=== PATIENT | female | born 1950 | race Caucasian/White ===

== ENCOUNTER 2016-12-09 09:06 | Inpatient (IN) | payer MEDICARE, MEDICAID ==
[~2016-12-09] VITALS: Ht 154.9 cm; Wt 82.9 kg
[~2016-12-09 09:06] MED LIST: ANALGESIC BALM30 GM TP; CALTRATE-600 W600 MG PO; CEFTIN DPS500 MG PO; CETAPHIL CLEAN240 ML TP; CLARITIN DPS10 MG PO; DUONEB DPS3 ML IH; FLUOCINOLONE 0.025% TP; FLUOCINOLONE ACETONIDE 0.01% TP; HYDROCODONE 5MG/5 MG PO; KEFLEX-DPS500 MG PO; KEPPRA DPS500 MG/51 PO; KEPPRA XR500 MG PO; KLOR-CON M2020 ME1 PO; LAMISIL250 MG PO; LEVAQUIN DPS500 MG PO; LOPRESSOR DPS50 MG PO; MAALOX DPS30 ML PO; MAG-OX400 MG PO; MILK OF MAGNESI10 ML PO; MIRALAX17 GM PO; MOI-STIR120 ML PO; MUCINEX600 MG PO; MYCELEX TROCHE10 MG PO; MYCOSTATIN PWD15 GM TP; NITROSTAT0.4 MG SL; PEPCID DPS20 MG PO; PEPCID40 MG PO; PLAVIX75 MG PO; ROBITUSSIN DM S PO; SENOKOT S1 TAB PO; SINGULAIR10 MG PO; SURFAK240 MG PO; SYNTHROID DP0.025 MG PO; TYLENOL DPS325 MG PO; ULTRAM DPS50 MG PO; VIBRAMYCIN-DPS100 M2 PO; XARELTO10 MG PO; XARELTO20 MG PO; [UNRECOGNIZED DRUG - OTHER] PO; [UNRECOGNIZED DRUG - REMARK] PO
--- NOTE | 2016-12-11 09:07 | ER ---
ADMIT: 12/09/2016 RM/LOC: 312 [facility] MR#: [id number] [address] [address] FRANCESLYNDON Lance [place] [address] Emergency Room Report SEX: F AGE: 66 : 1950 DATE: 12/09/2016 ADDENDUM: CHIEF COMPLAINT: Decreased LOC. HISTORY OF PRESENT ILLNESS: This is a 66-year-old, alert, lives at [facility]. According to , it sounds like they were trying to get her to breakfast and she was just slumped over, seemed like she had no energy where she is usually able to set up in the wheelchair. She was not able to do that this morning. COURSE IN THE ER: Sepsis protocol was ordered along with influenza, CT of the head. She did receive a DuoNeb en route on the way. She was still very tight, so ordered a 2nd DuoNeb. She was initially came in of 4 liters of oxygen to keep her above 90%. We have titrated her down to 2 L, then she is at 92-%94% now. Chest x-ray did not show pneumonia but CTA of the chest did. She has bilateral pneumonia. Zosyn has been started down here. LABORATORY DATA: CBC showed WBC of 3.5, hemoglobin at 12.7, platelets 101. Lactic acid is 2.4. Procalcitonin is 0.19. INR is 1.25. CMP is normal except for chloride of 114, bicarb 21, glucose 103, calcium 8.0. Her total protein and albumin are low at 5.8 and 3.1. CK is low at 19. Her MB and troponin are normal. EKG showed sinus tachycardia at a rate of 101; over-read by Dr. Devine. No ST elevation or depression. Influenza test is negative. ABGs were done this was on 2 L. Her pO2 was 61, her pCO2 was 24.5, her pH was 7.382. She has A positive blood. Urine was normal except for 1+ ketones. She did receive a liter of fluids, now is at rate of 100 an hour. Again, Zosyn has been started down here in the emergency room. Dr. Haji was called at 1330 hours, and we will admit the patient. CLINICAL IMPRESSION: 1. Bilateral pneumonia. 2. Hypoxia. 3. History of cerebrovascular accident. DISPOSITION: She is stable at admit. JENNIFER Laurent / Tariq Devine MD / modl JOB #: [id number] CC: Bryce Haji MD, Attending Physician Bryce Haji MD, Family Physician
--- NOTE | 2016-12-11 13:52 | CO ---
ADMIT: 12/09/2016 RM/LOC: 312 [facility] MR#: [id number] [address] [address] LIBIA DANIELS [place], [place] [id number] Consultation SEX: F AGE: 66 : 1950 DATE OF CONSULTATION: 12/10/2016 ATTENDING PHYSICIAN: Bryce Haji CONSULTING PHYSICIAN: Tatyana Licea APRN TIME IN: 1300 hours. TIME OUT: 1355 hours. REASON FOR CONSULTATION: Supportive Care consultation was requested by Dr. Oconnor for discussion of goals for care. HISTORY OF PRESENT ILLNESS: Libia is a 66-year-old female, who resides at [facility] in [place]. She was admitted to the hospital on December 09 with fatigue, shortness of breath, and cough. She was found to have pneumonia and sepsis. She also had issues with atrial fibrillation. She was requiring BiPAP earlier, however, she is now tolerating nasal cannula. 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 She is fairly debilitated at baseline. Due to her complexities, Supportive Care consultation was requested to discuss goals for care. In terms of advanced directives, the patient does have a durable power-of- trademark attorney for healthcare. The patient's , Ashley Daniels whose phone #[phone] and #[phone], is the patient's durable [id number] for healthcare. The patient is a full code. She does have a living will. Symptomatically, the patient appears comfortable. She denies any complaints at this time. 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 ALLERGIES: THE PATIENT IS ALLERGIC TO ASPIRIN. CURRENT MEDICATIONS: Please see the patient's MAR for specific routes and dosages. Her current medications are as follows: 1. Hydrocodone. 2. Solu-Cortef. 3. NovoLog. 4. Half normal saline with potassium chloride. 5. Amiodarone. 6. Feroz-Synephrine. 7. Potassium chloride. ADMIT: 12/09/2016 RM/LOC: 312 [facility] MR#: [id number] [address] [address] [place] [address] Consultation SEX: F AGE: 66 : 1950 8. Keppra. 9. Xarelto. 10.Ultram. 11.Topamax. 12.Protonix. 13.Mucomyst. 14.Proventil. 15.Duragesic patch. 16.Singulair. 17.Magnesium oxide. 18.Synthroid. 19.Glutose. 20.Glucagon. 21.Analgesic balm. 22.Mycostatin powder. 23.MiraLax. 24.Nitro-Bid. 25.Levophed. 26.Cardizem. 27.Zosyn. 28.Levaquin. 29.Maalox. 30.Tylenol. 31.Surfak. 32.Nitrostat. SOCIAL HISTORY: The patient is . She lives at [facility]. She does not smoke or use alcohol. FAMILY HISTORY: Significant for prostate cancer. FUNCTION REVIEW: Prior to her hospital stay, she was at [facility]. She was requiring assistance with ADLs. She is in a wheelchair. Palliative performance scale prior to admission was around 40%. Currently, she is total care. Her intake is minimal. Her current palliative performance score is 20%. REVIEW OF SYSTEMS: A 10-point review of systems was attempted. However, due the patient's mentation, this is unable to be obtained. PHYSICAL EXAMINATION: GENERAL: The patient is examined in the bed. She is in no acute distress. VITAL SIGNS: Temperature 99.6, pulse 110, respirations 28, blood pressure 113/71, and oxygen 94% on O2 via nasal cannula. HEENT: Head is normocephalic. Pupils are equal, round, and reactive with a diameter of 3 mm bilaterally. Oral mucosa pink and moist with fair dentition. NECK: Supple. RESPIRATORY: Respirations are equal and nonlabored at rest. LUNGS: Diminished in the bases. ADMIT: 12/09/2016 RM/LOC: 312 [facility] MR#: [id number] [address] [place], [place] [id number] LIBIA DANIELS VÍ[place] [address] Consultation SEX: F AGE: 66 : 1950 CARDIOVASCULAR: Rate rhythm regular without murmurs, rubs, or gallops. 2+ bilateral lower extremity edema noted. GASTROINTESTINAL: Soft, nontender. Bowel sounds are positive. MUSCULOSKELETAL: Generalized weakness. She does have the left hemiparesis. INTEGUMENTARY: Skin turgor is fair. NEUROLOGIC: Fatigued. She will not answer orientation questions for me. PSYCHIATRIC: Calm and cooperative. No agitation noted. DIAGNOSTIC DATA: Sodium 138, potassium 3.6, BUN 15, creatinine 0.6, total protein 4.3, and albumin 2.1. WBCs 7.2, hemoglobin 11.1, hematocrit 34.6, and platelets 139. IMPRESSION: 1. Debility. 2. Fatigue. 3. Malaise. 4. Severe protein-calorie malnutrition. 5. Pneumonia. 6. Septic shock. 7. Atrial fibrillation. 8. Aortic arch aneurysm status post repair. 9. Aortic valve replacement. 10.Prior cerebrovascular accident with left hemiparesis. 11.Palliative care. 12.Patient is a full code. PLAN OF TREATMENT: 1. I met with the patient and her at the bedside. The patient is too fatigued to participate in medical decision making. We reviewed the patient's overall status and goals for the time ahead with the patient's . He is aware that she is very sick but is hopeful for improvement. His goal is to try to get her out of the hospital and get her back to the senior care to continue ongoing aggressive care at this point. He does agree to ongoing discussions pending her status. 2. I did review code status including the burden versus benefit of full code ADMIT: 12/09/2016 RM/LOC: 312 [facility] MR#: [id number] [address] [place] [id number] [place] [address] Consultation SEX: F AGE: 66 : 1950 status versus a do not resuscitate/do not intubate status with the patient's and at this time, he directs the patient to be a full code. He does agree to ongoing discussions regarding this pending the patient's status as well. At this point, I am hopeful that the patient can improve and hopefully participate at some point in our discussions. Overall her debility is significant and we will see how things go in the time ahead. We would like to thank Dr. Oconnor for the invitation participate in this patient's care. Total consultation time was 35 minutes from 1300 hours to 1335 with 20 minutes from 1305 hours to 1325 hours spent [id number] with the patient discussing goals for care and providing counseling and support. We will continue to follow along. Tatyana Licea APRN/ erika JOB #: [id number] CC: Bryce Haji, Attending Physician Bryce Haji, Family Physician
--- NOTE | 2016-12-12 09:59 | HP ---
ADMIT: 12/09/2016 RM/LOC: 312 [facility] MR#: [id number] [address] [facility] [address] [place] [phone] LYNDON DANIELS Lance VÍCTOR [place] [address] History and Physical SEX: F AGE: 66 : 1950 DATE OF SERVICE: 12/09/2016 CHIEF COMPLAINT: Fatigue, shortness of breath, and cough. HISTORY OF PRESENT ILLNESS: The patient is a 66-year-old, , white female, resident of [facility], who is admitted to [facility] through the emergency room on December 09, 2016. Her states she has been congested and just had had been feeling well. She was starting to feel weak and was seen in the ER and was diagnosed with pneumonia and admitted to the floor. Upon arrival to the floor, she deteriorated fairly quickly and he states a bunch of doctors and nurses showed up and she has been more weak and confused since. PAST MEDICAL HISTORY: Very well outlined in the chart. She has had numerous surgeries including a mechanical aortic valve replacement with aortic arch aneurysm repair in which a filter had been used and she suffered a severe stroke with a left hemiparesis and partial expressive aphasia down at [facility]. She has additionally had prior gastric banding in . Right total hip arthroplasty bilateral total knees, prior tonsillectomy, appendectomy and additionally had diabetes mellitus type 2, which is resolved with weight loss and diet, has hypertension, degenerative arthritis, coronary artery disease, dysthymia, asthma, constipation, history of atrial fibrillation, and seizure disorder. MEDICATIONS: Listed, and she has an extensive list from [facility] includin. Tylenol. 2. Antivert. 3. Biofreeze. 4. Calcium with vitamin D. 5. DuoNeb. 6. Fentanyl patches with recent pelvic insufficiency fracture. 7. Potassium. 8. Levetiracetam. 9. Claritin. 10.Lortab. 11.Maalox. 12.Mag oxide. 13.Metoprolol. 14.Milk of mag. 15.MiraLAX. 16.Singulair. 17.Mucinex. 18.Nitrostat. 19.Nystatin powder. 20.Pepcid. 21.Senna. 22.Surfak. 23.Synthroid. 24.Topamax. ADMIT: 12/09/2016 RM/LOC: 312 [facility] MR#: [id number] [address] [address] [place] [address] History and Physical SEX: F AGE: 66 : 1950 25.Ultram. 26.Xarelto. ALLERGIES: INCLUDE ASPIRIN. SOCIAL HISTORY: Is that of a 66-year-old, , white female. She currently lives at [facility]. She is a full code. She does not smoke or drink and by my recall was nonsmoker prior to her stroke. She is full code and she ingests her diet orally. FAMILY HISTORY: Includes prostate cancer in her father. REVIEW OF SYSTEMS: Remarkable for intermittent partial expressive aphasia. Her current altered mental status with some shortness of breath, cough, and rattling in her lungs. She was able to intake orally, but has problems with bowel and bladder control. Suffers from chronic depression and dysthymia and has some mild skin breakdown on her perineal area and has an obvious left hemipareses. Remainder of review of systems is unremarkable. PHYSICAL EXAMINATION: VITAL SIGNS: Temp was 103 with a pulse of 170, respiratory rate 30, blood pressure was 117/68, but of note, she had been hypotensive on the floor as well with sats of 92% on oxygen. She was evaluated in the ER, and labs include sodium 145, potassium 4.0, BUN of 19, creatinine 0.6 with glucose 103, calcium is 8.0, total protein 5.8 with albumin 3.1, ALT is 9 with an AST of 12, and magnesium 1.7. TSH was normal 2 months ago. INR is 1.25. White count 3.5, hemoglobin 12.7, and platelet count of 101,000. Hemoglobin A1c is 4.2. Lactic acid 2.9 elevated. Influenza A and B are negative. UA is for the most part unremarkable. Cultures have been obtained. CAT scan of the chest shows bilateral lower lobe consolidation consistent with pneumonia with a large hiatal hernia. CT of the head shows an old right temporal lobe infarct with encephalomalacia and left parietal lobe infarct, which is old. Chest x-ray is unremarkable. ASSESSMENT: Bilateral pneumonia with sepsis, hypotension, atrial fibrillation with rapid ventricular response with ongoing Xarelto therapy. Other problems include recent sacral insufficiency fracture with fentanyl patch, prosthetic aortic valve, aortic arch aneurysm repair with prior cerebrovascular accident with left hemiparesis, prior diabetes mellitus type 2 currently diet controlled and resolved with weight loss, hypertension with current hypotension secondary to probable sepsis, degenerative arthritis, coronary ADMIT: 12/09/2016 RM/LOC: 312 [facility] MR#: [id number] [address] [place] [phone] [facility] [address] History and Physical SEX: F AGE: 66 : 1950 artery disease, seizure disorder, dysthymia, and history of bilateral total knee and right total hip arthroplasties and prior gastric banding. PLAN: Cultures have been obtained. Zosyn and Levaquin have been started. Cardiology consulted for her atrial fibrillation with rapid ventricular response and hypotension. She has received approximately 1250 mL of normal saline fluid bolus. We will add some D5 half-normal from replacement electrolytes. Critical Care has been consulted. Accu-Chek monitoring sliding scale ordered. We will proceed with further evaluation and management based on course during hospitalization. Her overall health care was discussed with her and son, who desired to proceed with full code status. Please see her hospital record for the details. Bryce Haji MD/ erika JOB #: [id number] CC: Bryce Haji, Attending Physician Bryce Haji, Family Physician
--- NOTE | 2016-12-14 10:15 | OR ---
ADMIT: 12/09/2016 RM/LOC: 312 [facility] MR#: [id number] [address] [address] [place]NDON DANIELS [place], [place] [address] Operative/Delivery Room Report SEX: F AGE: 66 : 1950 SURGERY DATE: 12/13/2016 SURGEON: Francis Oconnor MD PREOPERATIVE DIAGNOSES: Pulmonary edema versus aspiration pneumonia, respiratory failure. INDICATIONS FOR PROCEDURE: The patient has been intubated by Anesthesia and put on the ventilator. The bronchoscopy was done to see if there was any evidence for aspiration and also to take samples for microbiological and cytological studies. DESCRIPTION OF PROCEDURE: The scope was introduced through the #8 endotracheal tube that had been inserted by anesthesiologist. There was some yellowish secretion seen on both sides, mucosal redness detected on both sides, but gross mucosal plaques or aspirated food material could not be identified. Bronchoalveolar lavage was taken from the right middle lobe and mixed washings obtained also for microbiological studies. The procedure was well tolerated. The patient will remain on the ventilator postoperatively. Findings discussed with Dr. Pappas. Findings also discussed with the . Francis Oconnor MD/ erika JOB #: [id number] CC: Bryce Haji, Attending Physician Bryce Haji, Family Physician Bryce Haji MD
--- NOTE | 2016-12-15 06:59 | OR ---
ADMIT: 12/09/2016 RM/LOC: 312 [facility] MR#: [id number] [address] [address] DANIELSLYND[place] [address] Operative/Delivery Room Report SEX: F AGE: 66 : 1950 SURGERY DATE: 12/09/2016 SURGEON: Houston Prescott MD PREPROCEDURE DIAGNOSES: 1. Poor IV access. 2. Respiratory failure. POSTPROCEDURE DIAGNOSES: 1. Poor IV access. 2. Respiratory failure. PROCEDURE: Right subclavian vein triple-lumen central line placed. INDICATIONS: The patient is a 66-year-old in ICU bed 312 with respiratory insufficiency, poor IV access, and hypotension in need of central line placement. FINDINGS: The patient was in ICU bed. The patient was placed supine in in Trendelenburg position. The left chest was prepped and draped in normal sterile fashion. A 1% lidocaine is used for local analgesia. An introducer needle was placed into the left subclavian vein without difficulty. Unfortunately, the wire would not thread easily and reached some type of obstruction right at the sternoclavicular notch. I did not have fluoroscopy with me. I did do several other venipuncture attempts and about 3 other attempts that had a nice blood return, but again could not get the wire to go without feeling like there was some type of obstruction; therefore, I aborted the procedure on the left side, went to the right side, fully prepped and draped again, injected 1% lidocaine, placed an introducer needle in the right subclavian vein, a wire threaded what felt like to be up the jugular vein but on pulling it back and changing my angle felt like it dropped into the right ventricle. I removed the needle and enlarged the insertion site with 11 blade, placed a dilator over our wire and threaded our triple lumen over our wire without difficulty. The catheter was sutured to the anterior chest wall skin using interrupted 2-0 silk suture. All ports then aspirated and flushed without difficulty. The wound was dressed with a Tegaderm and a postprocedure chest film was ordered. Houston Prescott MD/ erika JOB #: [id number] CC: Bryce Haji, Attending Physician Bryce Haji, Family Physician
--- NOTE | 2016-12-23 08:45 | CO ---
ADMIT: 12/09/2016 RM/LOC: 312 [facility] MR#: [id number] [address] LIBIA DANIELS [place], [place] [id number] Consultation SEX: F AGE: 66 : 1950 DATE OF CONSULTATION: 12/09/2016 ATTENDING PHYSICIAN: Bryce Haji CONSULTING PHYSICIAN: Artem Barry MD REASON FOR CONSULT: Atrial fibrillation with rapid ventricular response. HISTORY OF PRESENT ILLNESS: Libia is a 66-year-old lady, who is actually known to us. In 2011, she was found to have a thoracic aortic aneurysm measuring over 6 cm. She underwent resection of the ascending aortic root with implantation of an aortic conduit, and I believe, she had an aortic valve replacement at that time. 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 She also had postop atrial fibrillation, but when I have seen her in followup, I think she has been maintaining sinus rhythm. She has had some problems with anticoagulation in the past with vaginal bleeding, but she is currently tolerating low-dose Xarelto. Most of the history is gathered from her . She can answer only very simple questions. Apparently, she has had poor appetite recently and mental status changes with some questionable lethargy and overall weakness. She was brought to the hospital. There was question of underlying infection and sepsis. He tells me that she was not febrile at the penitentiary and they did not see any evidence of tachycardia. She was admitted. This afternoon she went into atrial fibrillation with very rapid rates up to 180. There also appeared to be some aberrancy. She was febrile in the hospital up to 103 and she is relatively hypotensive. Despite that she is alert. She answers my simple questions and denies any active pain or palpitations. ALLERGIES: INTOLERANCE TO ASPIRIN AND ALLERGY TO PENICILLINS. MEDICATIONS: Include: 1. Calcium with vitamin D 600 b.i.d. 2. Claritin 10 daily. 3. Keppra 500 b.i.d. 4. Potassium 20 mEq b.i.d. 5. Lamisil. 6. Lopressor 25 b.i.d. 7. Magnesium oxide 400 daily. 8. Mucinex b.i.d. 9. Mycelex 5 times a day. 10.Pepcid 20 at bedtime. 11.Senokot b.i.d. 12.Singulair 10 daily. 13.Synthroid 25 mcg daily. 14.Topamax 100 t.i.d. 15.Ultram 50 t.i.d. ADMIT: 12/09/2016 RM/LOC: 312 [facility] MR#: [id number] [address] [place] [address] Consultation SEX: F AGE: 66 : 1950 16.Xarelto 10 mg at bedtime. 17.She is on DuoNeb inhaler. 18.She has multiple p.r.n. medications. PAST MEDICAL HISTORY: Illnesses include history of thoracic aortic aneurysm status post repair and aortic valve replacement. She had a subsequent stroke. She has hypothyroidism, history of hypertension, and seizure disorder since her stroke. There is a history of diabetes, asthma, chronic depression, and chronic constipation. PAST SURGICAL HISTORY: Includes tonsillectomy and appendectomy. She has had a right total hip replacement. Gastric banding for morbid obesity. She has also had bilateral knee replacement and then her thoracic aortic aneurysm in 2011. FAMILY HISTORY: Negative for premature coronary disease. I believe, her father had prostate cancer. No family history of stroke. SOCIAL HISTORY: She currently lives in a penitentiary. She is and her checks on her on a very regular basis. There is no active tobacco or alcohol use. 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 REVIEW OF SYSTEMS: Unobtainable due to her acute illness and limitations after her stroke. She did answer no to chest pain, palpitations, or any focal cardiac complaints. She denied any current pain. PHYSICAL EXAMINATION: VITAL SIGNS: Her blood pressure is 117/68, her pulse is about 107, respirations 25, she is febrile at 103, and O2 saturation is 92% on room air. GENERAL: She does answer my questions. She gives me eye contact. Communicating is very difficult for her, but she answers simple questions and she does not appear in any acute distress. EYES: Sclerae clear. No xanthelasmas. ENT: The neck was difficult to examine, but I do not see any JVD or bruits. Oral mucosa is pink and moist. HEART: Markedly tachycardic with a possible click in the S2 position. Slightly irregular, but it is hard to tell with her underlying tachycardia. No significant murmurs or rubs were noted. CHEST: Very coarse sounds throughout the entire lung henderson. No dullness to percussion noted. No crackles. Just very coarse rhonchi throughout. ABDOMEN: Soft without organomegaly. Nontender to palpation. Bowel sounds were decreased but present. EXTREMITIES: There is mild edema bilaterally. Pulses are intact. MUSCULOSKELETAL: She has left-sided weakness. PSYCHIATRIC: Alert and oriented. Mood and affect are appropriate. LABORATORY DATA: Sodium 145, potassium 4.0, BUN 19, and creatinine 0.6. AST is 12, ALT is 9. Cardiac enzymes are negative. INR is 1.25. White count ADMIT: 12/09/2016 RM/LOC: 312 [facility] MR#: [id number] [address] [place] [address] Consultation SEX: F AGE: 66 : 1950 3.5, hemoglobin 12.7, and platelet count 101. IMAGING DATA: Chest x-ray is over exposed, does not show any acute pulmonary vascular congestion. CAT scan of the chest was done, which was negative for pulmonary emboli. Bilateral lower lobe consolidations concerning for pneumonia per the radiologist read along with large hiatal hernia. EKG shows atrial fibrillation with rapid ventricular response. No definitive Q-waves or nonspecific ST changes. IMPRESSION: 1. Atrial fibrillation with rapid ventricular response. 2. Probable sepsis. 3. Prior postoperative cerebrovascular accident with left hemipareses. RECOMMENDATIONS: She did have atrial fibrillation in the past after her thoracic aortic aneurysm repair, but when I have seen her in followup, I think she has been maintaining sinus rhythm for the most part. My feeling is that this acute illness and possible sepsis is the precipitating factor for her atrial fibrillation with very rapid ventricular response. The difficulty is she is relatively hypotensive. We are holding her beta-gerhard at the moment because of her hypotension. I am going to try IV digoxin to control her heart rate. If this is not effective, I think the next step would be IV amiodarone. She should continue at least her low-dose anticoagulation. In the mean time, I know her primary will be giving her volume resuscitation and treating her probable underlying infection. I did discuss with her that she is very ill with her underlying sepsis and multiple comorbidities. Her prognosis is poor and guarded. He is very reasonable and states understanding. Artem Barry MD/ erika JOB #: [id number] CC: Bryce Haji, Attending Physician Bryce Haji, Family Physician
--- NOTE | 2016-12-23 19:10 | CO ---
ADMIT: 12/09/2016 RM/LOC: 312 [facility] MR#: [id number] [id number] [address] LYNDON [place] [address] Consultation SEX: F AGE: 66 : 1950 DATE OF CONSULTATION: 12/14/2016 ATTENDING PHYSICIAN: Bryce Haji CONSULTING PHYSICIAN: Tonio Kim MD CHIEF COMPLAINT: Fatigue, shortness of breath, and cough. HISTORY OF PRESENT ILLNESS: The patient had suffered a stroke 5 years ago and since then, she has been in a [facility]. She does have difficulty swallowing foods and she has some mechanical soft diet mostly. She has come down with the pneumonia sepsis syndrome, has been hospitalized and intubated and then after improvement has been just recently extubated. During all this, has been noted to have pancytopenia. Oncology-Hematology consult requested for pancytopenia. PAST MEDICAL HISTORY SURGERY: Positive for stroke, hypertension, coronary artery disease, aortic arch aneurysm, gastric banding, total hip arthroplasty, hypertension, degenerative arthritis, atrial fibrillation, seizure disorder. SOCIAL HISTORY: She is 66-year-old, white lady, resident of [facility]. No history of alcohol or smoking. FAMILY HISTORY: Negative for blood disorders, lymphomas, or leukemias. MEDICATIONS: She is on a number of medication. List is long includin. Topamax. 2. Synthroid. 3. Surfak. 4. Pepcid. 5. Nitrostat. 6. MiraLAX. 7. DuoNeb. 8. Calcium. 9. Tylenol. REVIEW OF SYSTEMS: The patient just has been extubated and she had a CPAP mask, unable to give history. Based on the family, , does not have any petechiae, ecchymosis, bruising, any palpable lymph nodes, any weight loss in the recent weeks or months. Currently, shortness of breath and temperature and recovering from infection. PHYSICAL EXAM: VITAL SIGNS: Temperature 100, pulse rate 120, respirations 26, blood pressure 110/70, pulse rate 88. HEAD, EARS, EYES, NOSE, THROAT EXAM: Normocephalic, atraumatic. Extraocular muscles intact. NECK: Supple. No JVD. No lymph nodes palpable. CHEST: Sounds decreased on the bases. CPAP machine on the face. There is some hoarse rhonchi back and forth. ADMIT: 12/09/2016 RM/LOC: 312 [facility] MR#: [id number] [address] [place] [address] Consultation SEX: F AGE: 66 : 1950 ABDOMEN: Soft, nontender. No organomegaly. Bowel sounds positive. EXTREMITIES: Some 1+ edema. LABORATORY: WBC count 3.6, hemoglobin 7.8, hematocrit 23, platelets 71. Sodium 145, potassium 3.1, chloride 114, creatinine 0.5. Total protein 4.9, albumin 3.6. ASSESSMENT AND PLAN: This is a pleasant 66-year-old, lady with pancytopenia. This could be reactive or multifactorial including nutritional, underlying bone marrow problem or drug related. I will do the peripheral blood review and then methylmalonic acid, and erythropoietin level, B12 and folic acid level. If these are inconclusive, consider doing a bone marrow once she is stable and better. At this point, her pancytopenia is not terribly low to indicate any transfusion or any Granix injections or any other intervention, but I will closely monitor, if the hemoglobin goes down, she may be transfused, and then I will see what we find on the preliminary workup. I went over about the prognosis, expectations, side effects. All the questions were answered. This encounter took 60 minutes, 35 minutes was [id number]. Tonio Kim MD/ erika JOB #: [id number] CC: Bryce Haji, Attending Physician Bryce Haji, Family Physician
--- NOTE | 2017-01-26 16:03 | CO ---
ADMIT: 12/09/2016 RM/LOC: 312 [facility] MR#: [id number] [address] LYNDON [place] [address] Consultation SEX: F AGE: 66 : 1950 DATE OF CONSULTATION: 12/09/2016 ATTENDING PHYSICIAN: Bryce Haji CONSULTING PHYSICIAN: Maykel Lorenz MD HISTORY OF PRESENT ILLNESS: A 66-year-old white female, lifetime nonsmoker status post AVR, thoracic aortic dissection in May 2012, complicated by CVA at [facility] and who has been a resident of retirement for the past 4 years and who presented to the ER as she was found to have decreased level of consciousness "slumped down" and then presented to the ER and admitted to the floor. The patient developed worsening cough, sputum, marked elevation of heart rate to 170, transferred to intensive care for pulmonary critical care consultation. The patient is awake, dyspneic, productive sounding, but denies any pain. Notably, the patient has been on Xarelto up until yesterday. PAST SURGICAL HISTORY AND PAST MEDICAL HISTORY: SURGERIES AND OPERATIONS: Fractured coccyx with cement repair. ILLNESSES: Chronic atrial fibrillation and kidney disease. ALLERGIES:: ? allergy to aspirin. MEDICATIONS:: Reviewed in [email or web address]. FAMILY HISTORY: Father , 60 years old, prostate. Mother alive, is 89 years old. 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 Alcohol, none. Tobacco, none. , 3 children alive and well. REVIEW OF SYSTEMS: Prior to this admission, she has had satisfactory p.o. intake, able to even leave the facility with her weekly. She travels in a wheelchair, and she does have satisfactory urine and bowel function. Otherwise as above negative. PHYSICAL EXAMINATION: GENERAL: Initially not responding in the ER. VITAL SIGNS: Blood pressure was 117/68, pulse 170, respiratory rate 30, temp up to 103, and sats 92% on 3 L. HEENT: Nose and throat dry. No lymphadenopathy. NECK: Stiff neck (chronic). No lymphadenopathy or JVD. HEART: Regular rate and rhythm. CHEST: Barrel chested. Decreased in the bases. Slightly coarse and slightly prolonged expiratory phase. ABDOMEN: Soft, nontender. No definite hepatosplenomegaly. EXTREMITIES: No clubbing cyanosis, or edema. Left hemiparesis. DIAGNOSTIC DATA: CTA negative for PE, but bilateral infiltrates are seen. ADMIT: 12/09/2016 RM/LOC: 312 [facility] MR#: [id number] [address] [place] [id number] [place] [address] Consultation SEX: F AGE: 66 : 1950 LABORATORY DATA: ABG; 7.3, pCO2 of 25, PO2 of 61. BUN 19, creatinine 0.6, CO2 is 21, albumin 3.1, mag 1.7. ProBNP 949. INR 1.25. ASSESSMENT AND RECOMMENDATION: 1. Acute on chronic respiratory failure - The patient has new onset of reduced level of consciousness, cough, congestion, and atrial fibrillation to 170. The patient has been started on Zosyn and Levaquin as suspicious for acute infection whether acute influenza complicated by bacterial infection (epidemic in the area) though the rate of onset would be unusual for bacterial complications though certainly influenza is possible, but infiltrates would not be so prominent this early. The patient may have had aspiration as well. 2. Atrial fibrillation. Heart rate 170. Blood pressure has ranged from systolic over 200 to less than 80 with uncertainty of accuracy of either. The patient has remained awake when stimulated. Notably, her proBNP was only 949. Cardiology has been consulted and recommended amiodarone bolus 150 mg and use Feroz-Synephrine for hypotension. Levophed may be added as well. 3. Metabolic acidosis. Bicarb is noted to be 21. Note, she is hyperventilating. She has been on Xarelto. 4. Renal insufficiency - the patient's current creatinine is 0.6. 5. Status post aortic valve replacement and thoracic resection in May 2012 at [facility], complicated by CVA and left hemiparesis. 6. Other - the patient will have central line placed. Surgical attempt on the left side found obstruction and repeated on the right. Chest x-ray is pending. 7. Nutrition. The patient will be followed in the a.m. regarding advancing diet if she should have improvement. The patient will be started on BiPAP ranging from 8 to 12 over 4 to 6. Keep tidal volumes approximately 500 to 600. She has had respiratory rate in the 30 to 34 range. Minute ventilations have been 15 to 22. Total time greater than 2 hours of critical care. Maykel Lorenz MD/ erika JOB #: [id number] CC: Bryce Haji, Attending Physician Bryce Haji, Family Physician
--- NOTE | 2017-02-08 07:11 | DS ---
ADMIT: 12/09/2016 RM/LOC: 312 [facility] MR#: [id number] [address] [address] [place] [address] General Discharge Summary SEX: F AGE: 66 : 1950 ADMISSION DATE: 12/09/2016 DISCHARGE DATE: 12/17/2016 INDICATION FOR HOSPITALIZATION: Libia is a 66-year-old, white female, resident of [facility] admitted to [facility] through the ER on December 09, 2016. In the ER, she was diagnosed with pneumonia and was admitted to [place]. On admission, she deteriorated quickly and became confused and disoriented. Please see her admission H and P for further details regarding her history of present illness, past medical history, physical exam, and assessment at the time of hospitalization. HOSPITAL COURSE: On admission, the patient was diagnosed with hypoxia, sepsis, and pneumonia. Routine lab and x-rays were obtained, and she was started on IV Zosyn and Levaquin and nebulizers. Accu-Chek monitoring and sliding scale insulin were ordered. Cardiology was consulted for atrial fibrillation with rapid ventricular response with sepsis. On admission, she was noted to have a tachycardia with hypotension and was unstable for admission to the floor, and Cardiology was consulted, and due to her hypotension, could not use beta-blockers or Cardizem, and Dr. Barry managed her rate with IV digoxin and stabilized her, transferred to the ICU. In the ICU, she was given Cardizem for rate management. Critical Care, and Cardiology was subsequently involved. Accu-Chek monitoring and sliding scale insulin were ordered. Amiodarone drip and bolus were ordered. A central line was placed by Surgery. The patient continued to struggle regarding her breathing and rate and rhythm control. The patient was given IV steroids, and Palliative Care was consulted to see the patient on evaluation by Critical Care. Supportive Care met with the family. Lengthy discussion with the family held on December 11 regarding possible need for G-tube adjustments on electrolytes, fluids were given. Speech Therapy recommendations following modified barium swallow were outlined. Possible need for TPN was discussed with family. Amiodarone was changed from IV to oral on December 13. Diuretic and electrolyte replacement therapy was outlined. The patient was intubated and placed on the ventilator on December 13. Issues regarding her positive RSV, pancytopenia, ventilator were addressed on December 14. Oncology consulted regarding the pancytopenia on December 14. Continued severe potassium depletion was noted, replacement was ordered. On December 16, the patient continued to be on the ventilator and respiratory failure with B12 deficiency. Heme/Oncology and Palliative Care were ultimately involved. Bronchioalveolar lavage had been performed. Results were pending. The patient continued to show pulmonary edema and due to her overall poor progress in discussions with family and palliative care consult meeting with the regarding quality of life from possible need for hospice were arranged. The patient was made DNR on December 16, and on December 17, Hospice was formally consulted and arrangements to discontinue ventilator were made, and the patient was placed on comfort care. Hospice was consulted. The ventilator was discontinued per family request. The patient was not breathing and pronounced on December 17 at 2158 hours. LABORATORY AND X-RAY DATA: Include on December 17; white count 3.5, ADMIT: 12/09/2016 RM/LOC: 312 [facility] MR#: [id number] [address] [place] [id number] [place] [address] General Discharge Summary SEX: F AGE: 66 : 1950 hemoglobin 8.5, and platelet count of 96,000. On December 13; white count of 3.2, hemoglobin 7.8, and platelet count of 79,000. On December 09; white count of 3.8, hemoglobin 12.7, and platelet count of 101,000. On December 09; UA is normal. On December 16; sodium 151, potassium 3.6, BUN of 14, creatinine 0.5 with glucose of 106. On December 11; sodium of 142, potassium 3.0 with a BUN of 9, creatinine 0.6 with glucose 101, mag of 1.3. On December 09, lactic acid is 2.4 to 2.9 with sodium 145, potassium 4.0, BUN 19, creatinine 0.6 with glucose 103, total protein 5.8 with albumin 3.1, and magnesium 1.7. Sugars were noted, and ABGs were performed throughout the hospitalization, see the computer for results. B12 was 384, normal. On December 14; folate is 1.5, low. C-reactive protein on December 10 was 15.7 with a hemoglobin A1c of 4.2 on December 09. Influenza A and B were negative. Erythropoietin was high at 254 on December 14. RSV was positive. On December 13; blood culture showed no growth. Urine culture shows contamination. 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 Bronchioalveolar lavage cultures were negative. CT of the head on December 09 shows an old temporal infarct with encephalomalacia. Chest x-ray on December 09 shows hiatal hernia with pneumonia. PICC line on December 09, central line was placed, CHF and bilateral pneumonia. On December 12, tube in position. On December 15, stable chest x-ray on December 16. Sinus tachycardia on December 09. 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 PROCEDURES: Include PICC line, central line, ventilator placement, IV antibiotics, vasopressors, fluid, electrolyte replacement therapy, and aggressive medical management of her hypotension, sepsis, respiratory failure. Please see her hospital record for further details. Bryce Haji MD/ erika JOB #: [id number] CC: Bryce Haji MD, Attending Physician Bryce Haji MD, Family Physician
== END 2016-12-17 21:58 | disposition expired | DRG 871 ==
LOC: ER 09:06 → 4PCU 13:37 → 3ICU 13:37
PROVIDERS: ADMIT Family Medicine
PROC: 5A1945Z Respiratory Ventilation, 24-96 Consecutive Hours (ICD-10-PCS; principal; 2016-12-13)
PROC: 03HY32Z Insertion of Monitoring Device into Upper Artery, Percutaneous Approach (ICD-10-PCS; 2016-12-13)
PROC: 0BH17EZ Insertion of Endotracheal Airway into Trachea, Via Natural or Artificial Opening (ICD-10-PCS; 2016-12-13)
PROC: 0B958ZX Drainage of Right Middle Lobe Bronchus, Via Natural or Artificial Opening Endoscopic, Diagnostic (ICD-10-PCS; 2016-12-13)
PROC: 3E0G76Z Introduction of Nutritional Substance into Upper GI, Via Natural or Artificial Opening (ICD-10-PCS; 2016-12-14)
PROC: 0BH17EZ Insertion of Endotracheal Airway into Trachea, Via Natural or Artificial Opening (ICD-10-PCS; 2016-12-15)
PROC: 5A1935Z Respiratory Ventilation, Less than 24 Consecutive Hours (ICD-10-PCS; 2016-12-15)
PROC: 30233N1 Transfusion of Nonautologous Red Blood Cells into Peripheral Vein, Percutaneous Approach (ICD-10-PCS; 2016-12-16)
DX: A41.9 Sepsis, unspecified organism (principal); J96.21 Acute and chronic respiratory failure with hypoxia; R65.21 Severe sepsis with septic shock; E43 Unspecified severe protein-calorie malnutrition; J18.9 Pneumonia, unspecified organism; D61.818 Other pancytopenia; I69.354 Hemiplegia and hemiparesis following cerebral infarction affecting left non-dominant side; I48.2 Chronic atrial fibrillation; Z51.5 Encounter for palliative care; E87.6 Hypokalemia; R13.10 Dysphagia, unspecified; I69.320 Aphasia following cerebral infarction; R09.02 Hypoxemia; I10 Essential (primary) hypertension; K59.09 Other constipation; R73.02 Impaired glucose tolerance (oral); E53.8 Deficiency of other specified B group vitamins; M19.90 Unspecified osteoarthritis, unspecified site; E03.9 Hypothyroidism, unspecified; N28.9 Disorder of kidney and ureter, unspecified; I25.10 Atherosclerotic heart disease of native coronary artery without angina pectoris; F34.1 Dysthymic disorder; J45.909 Unspecified asthma, uncomplicated; G40.909 Epilepsy, unspecified, not intractable, without status epilepticus; Z98.84 Bariatric surgery status; Z98.0 Intestinal bypass and anastomosis status; Z96.641 Presence of right artificial hip joint; Z96.653 Presence of artificial knee joint, bilateral; Z95.2 Presence of prosthetic heart valve; Z79.01 Long term (current) use of anticoagulants; Z66 Do not resuscitate